=== PATIENT | male | born 1985 | race American Indian/Alaskan Native ===

== ENCOUNTER 2020-06-24 10:40 | Emergency (ER) | payer SELFPAY ==
[2020-06-24] MEDS ORDERED: ETOMIDATE 20 MG/10 ML INJ IV ONE (10:46)
[2020-06-24] MEDS ORDERED: SUCCINYLCHOLINE CHLORIDE 200 MG/10 ML INJ MDV ONE (10:46)
--- NOTE | 2020-06-24 15:24 | Emergency Department Report ---
Chief Complaint: Urogenital-Male Stated Complaint: STD CHECK Time Seen by Provider: 06/24/20 15:17 - HPI History of Present Illness: This is a 35-year-old male with no prior medical history presents the ED complaining of possible STD exposure. Patient states that he is unsure and thinks he may have an STD. Patient denies any symptoms such as fever, abdominal pain, nausea vomiting, penile discharge, penile pain, dysuria. Patient states that he just wants to be checked for an STD. - ROS Review of Systems: As noted in HPI - Exam Physical Exam: GENERAL: Alert and oriented x3, no apparent distress, Normal Gait, atraumatic. ABDOMEN: No organomegaly was noted,Positive bowel sounds, soft, and non- distended. . Nontender to palpation on all Quadrants, NO CVA tenderness. BACK: Full range of motion, no spinal tenderness, nontender to palpation. SKIN: Warm and dry, No lesions, No ulceration or induration present. MSE screening note: Focused history and physical exam performed. Due to findings the following was ordered: ED Medical Decision Making - Medical Decision Making 35-year-old male presents with STD exposure. ED course: Patient screened out due to no medical emergency and was given referral to outside resources such as clinic as well as of PCP to be tested Discussed patient partner knowledge and treatment. Discussed the follow-up with the health department for further STD testing. Patient's alert and oriented times 3. Vital signs are normal patient is in no acute discharge. Patient will be discharged home with instructions. ED Disposition for MSE Clinical Impression: Screening for STD (sexually transmitted disease) Disposition: TO HOME OR SELFCARE Condition: Stable Referrals: [facility] [Provider Group] - 3-5 Days [facility] [Outside] - 3-5 Days [facility] [Outside] - 3-5 Days [facility] [Outside] - 3-5 Days [facility] [Outside] - 3-5 Days [facility], [Primary Care Provider] - 3-5 Days
== END 2020-06-24 15:19 | disposition home or self-care (01) ==
LOC: ED 10:40
DX: Z11.3 Encounter for screening for infections with a predominantly sexual mode of transmission (principal)
CPT/HCPCS: 99281; J0330